=== PATIENT | male | born 1965 | race Caucasian/White ===

== ENCOUNTER 2016-05-25 19:07 | Emergency (ER) | payer MEDICARE, MEDICAID ==
--- NOTE | 2016-05-25 19:52 | Emergency Department Record ---
History of Present Illness - General Chief complaint: Extremity Problem Stated complaint: SMASHED RT HAND PINKE Time Seen by Provider: 05/25/16 19:49 Source: Patient Mode of Arrival: Ambulatory Limitations: No limitations - History of Present Illness Initial comments: 50 yo male presents to ED with a CC of injury to the right little finger. Patient reports that the finger was caught between two trees that he was cutting down resulting in a crush injury. Patient denies other injury, and reports that he is till able to move the finger well. Patient denies health problems other than HIV, is currently taking retro-viral therapy. MD Complaint: Extremity pain Onset/Timin -: Minutes(s) Location: Right History of Same: No Radiation: None Severity scale (1-10): >10 Quality: Crushing Consistency: Constant Improves with: Nothing Worsens with: Nothing Associated Symptoms: Denies other symptoms - Related Data Allergies Allergy/AdvReac Type Severity Reaction Status Date / Time acetaminophen [From Percocet] Allergy ITCHING Verified 05/25/16 19:16 oxycodone HCl [From Percocet] Allergy ITCHING Verified 05/25/16 19:16 Travel Screening - Travel/Exposure Within Last 30 Days Have you traveled within the last 30 days?: No - Travel/Exposure Within Last Year Have you traveled outside the [place] in the last year?: No - Additonal Travel Details Have you been exposed to anyone with a communicable illness?: No - Travel Symptoms Symptom Screening: None Review of Systems Constitutional: Denies: Chills, Fever, Malaise, Night sweats Eyes: Denies: Eye discharge, Eye pain ENT: Denies: Congestion, Ear pain, Epistaxis Respiratory: Denies: Cough, Dyspnea Cardiovascular: Denies: Chest pain, Dyspnea on exertion Endocrine: Denies: Fatigue, Heat or cold intolerance Gastrointestinal: Denies: Abdominal pain, Nausea, Vomiting Genitourinary: Denies: Incontinence, Retention Musculoskeletal: Reports: Arthralgia. Denies: Back pain, Gout, Joint swelling Skin: Denies: Bruising, Change in color Neurological: Denies: Abnormal gait, Confusion, Headache, Seizure Psychiatric: Denies: Anxiety Hematological/Lymphatic: Denies: Anemia, Blood Clots Past Medical History - SOCIAL HISTORY Smoking Status: Current every day smoker Alcohol Use: Rare Drug Use: None - RESPIRATORY Hx Respiratory Disorders: No - CARDIOVASCULAR Hx Cardio Disorders: Yes Comment:: high cholesterol - NEURO Hx Neuro Disorders: No - GI Hx GI Disorders: Yes Hx Reflux: Yes - Hx Genitourinary Disorders: Yes Hx Prostate Problems: Yes - ENDOCRINE Hx Endocrine Disorders: No - MUSCULOSKELETAL Hx Musculoskeletal Disorders: Yes - PSYCH Hx Psych Problems: No - HEMATOLOGY/ONCOLOGY Hx Hematology/Oncology Disorders: Yes Comment:: HIV positive Family Medical History Any Significant Family History?: No Physical Exam - General General Appearance: Alert, Oriented x3, Cooperative, Moderate distress Limitations: No limitations - Head Head exam: Atraumatic, Normocephalic, Normal inspection Head exam detail: negative: Abrasion, Contusion, Youngblood's sign, General tenderness, Hematoma, Laceration - Eye Eye exam: Normal appearance. negative: Conjunctival injection, Periorbital swelling, Periorbital tenderness, Scleral icterus - ENT Ear exam: negative: Auricular hematoma, Auricular trauma Nasal Exam: negative: Active bleeding, Discharge, Dried blood, Foreign body Mouth exam: negative: Drooling, Laceration, Muffled voice, Tongue elevation - Neck Neck exam: Normal inspection. negative: Meningismus, Tenderness - Respiratory Respiratory exam: Normal lung sounds bilaterally. negative: Rales, Respiratory distress, Rhonchi, Stridor - Cardiovascular Cardiovascular Exam: Regular rate, Normal rhythm, Normal heart sounds - GI/Abdominal GI/Abdominal exam: Soft - Rectal Rectal exam: Deferred - exam: Deferred - Extremities Extremities exam: Tenderness, Other (STS and abrasions to the right little digit , Limited ROM due to pain however extension and flexion are intact suggesting tendon function is intact.). negative: Calf tenderness, Pedal edema - Back Back exam: Reports: Normal inspection. Denies: CVA tenderness (R), CVA tenderness (L) - Neurological Neurological exam: Alert, Normal gait, Oriented X3 - Psychiatric Psychiatric exam: Normal affect, Normal mood - Skin Skin exam: Abrasion, Normal color Type of lesion: abrasion Course Vital Signs 05/25/16 19:17 Temperature 98.1 F Pulse Rate 96 H Respiratory 21 Rate Blood Pressure 141/95 Pulse Ox 98 - Reevaluation(s) Reevaluation #1: 05/25/16 20:20 X-ray right little finger: No fracture identified Patient was updated on radiology results, has been soaking the digit in soapy solution. Laceration/abrasions all cleaned at the bedside, and there is no significant laceration requiring suture repair or dermabond. I did discuss initiating Keflex for antibiotic prophylaxis given the mechanism of injury, patient declined stating "I am leary about taking more antibiotic if I don't absolutely need them". Patient was encouraged to return to the ED for any redness, swelling, drainage, or fever symptoms immediately for reassessment. Patient's tetanus is UTD. Disposition Disposition: Discharge Clinical Impression: Laceration of little finger Qualifiers: Encounter type: initial encounter Qualified Code(s): S61.218A - Laceration without foreign body of other finger without damage to nail, initial encounter Disposition: Home, Self-Care Condition: (2) Stable Instructions: Finger Laceration (ED) Additional Instructions: Return to ED if your symptoms worsen or if you have any concerns. Follow-up with your family doctor in 3-5 days. Return to ED for any swelling, redness, drainage from the wound, or fever symptoms immediately. Forms: Patient Portal Access Time of Disposition: 20:24
--- NOTE | 2016-05-29 15:12 | RADIOLOGY REPORT ---
EXAM: RIGHT LITTLE FINGER HISTORY: SMASH INJURY OF THE MID PORTION OF THE LITTLE FINGER. TECHNIQUE: Three views of the right little finger were obtained. Comparison: None. FINDINGS: There is soft tissue swelling and laceration at the level of the middle phalanx. There is no visible acute fracture or dislocation. There is no radiopaque foreign body. IMPRESSION: NO FRACTURE OR FOREIGN BODY. JOB NUMBER: [id number] MTDD
== END 2016-05-25 20:46 | disposition home or self-care (01) ==
LOC: ER 19:07
DX: S61.216A Laceration without foreign body of right little finger without damage to nail, initial encounter (principal); W20.8XXA Other cause of strike by thrown, projected or falling object, initial encounter
CPT/HCPCS: 73140; 99283

== ENCOUNTER 2018-07-03 20:38 | Emergency (ER) | payer MEDICARE, MEDICAID ==
--- NOTE | 2018-07-03 21:07 | Emergency Department Record ---
History of Present Illness - General Chief complaint: Pain Stated complaint: judy anna Time Seen by Provider: 07/03/18 20:44 Source: Patient Mode of Arrival: Ambulatory Limitations: No limitations - History of Present Illness Initial comments: The patient is here due to lower back and tailbone pain. He states a week ago he was climbing from the front seat to the back and landed on the edge of the seat hitting his coccyx. Since he has had significant pain in the coccygeal area which is worse with bending and moving. He also has had bowel incontinence and having trouble urinating. He is describing basically urine retention and having trouble voiding. He also is having pain with intercourse. Due to the persistent pain he decided to come to the ER. He denies any AP, fever, chills, or dysuria. MD Complaint: Other Onset/Timin -: Days(s) Location: Other History of Same: No Radiation: None Severity scale (1-10): 7 Quality: Sharp Consistency: Constant Improves with: Medication Worsens with: Walking, Weight bearing - Related Data Home Medications Medication Instructions Recorded Confirmed Last Taken Acyclovir [Zovirax] 800 mg PO DAILY 07/03/18 07/03/18 07/03/18 Aspirin 1 tab PO DAILY 07/03/18 07/03/18 07/03/18 Cyanocobalamin (Vitamin B-12) 2,500 mcg PO DAILY 07/03/18 07/03/18 07/03/18 [Vitamin B12] Darunavir/Cobicistat [Prezcobix 1 each PO DAILY 07/03/18 07/03/18 07/03/18 800 mg-150 mg Tablet] Dolutegravir Sodium [Tivicay] 50 mg PO DAILY 07/03/18 07/03/18 07/03/18 Emtricitabine/Tenofov Alafenam 1 tab PO DAILY 07/03/18 07/03/18 07/03/18 [Descovy 200-25 mg Tablet] Pantoprazole Sodium [Protonix] 40 mg PO DAILY 07/03/18 07/03/18 07/03/18 Pregabalin [Lyrica] 50 mg PO DAILY 07/03/18 07/03/18 07/03/18 Rosuvastatin Calcium 10 mg PO DAILY 07/03/18 07/03/18 07/03/18 Tadalafil 2 tab PO DAILY 07/03/18 07/03/18 07/03/18 Allergies Allergy/AdvReac Type Severity Reaction Status Date / Time oxycodone HCl [From Percocet] Allergy ITCHING Verified 05/25/16 19:16 Travel Screening - Travel/Exposure Within Last 30 Days Have you traveled within the last 30 days?: Yes Location Detail:: [place] - Travel/Exposure Within Last Year Have you traveled outside the [place] in the last year?: No - Additonal Travel Details Have you been exposed to anyone with a communicable illness?: No - Travel Symptoms Symptom Screening: None Review of Systems Constitutional: Denies: Chills, Fever Eyes: Denies: Eye discharge ENT: Denies: Congestion Respiratory: Denies: Cough, Dyspnea Past Medical History - SOCIAL HISTORY Smoking Status: Current every day smoker Alcohol Use: Rare Drug Use: None - RESPIRATORY Hx Respiratory Disorders: No - CARDIOVASCULAR Hx Cardio Disorders: Yes Comment:: high cholesterol - NEURO Hx Neuro Disorders: No - GI Hx GI Disorders: Yes Hx Reflux: Yes - Hx Genitourinary Disorders: Yes Hx Kidney Stones: Yes Hx Prostate Problems: Yes - ENDOCRINE Hx Endocrine Disorders: No - MUSCULOSKELETAL Hx Musculoskeletal Disorders: Yes - PSYCH Hx Psych Problems: No - HEMATOLOGY/ONCOLOGY Hx Hematology/Oncology Disorders: Yes Hx Cancer: Yes (skin cancer) Comment:: HIV positive Family Medical History Any Significant Family History?: Yes Hx Diabetes: Mother Hx Heart Disease: Mother Physical Exam - General General Appearance: Alert, Oriented x3, Cooperative, No acute distress - Head Head exam: Atraumatic, Normocephalic, Normal inspection - Neck Neck exam: Normal inspection, Full ROM. negative: Tenderness - Respiratory Respiratory exam: Normal lung sounds bilaterally. negative: Respiratory distress - Cardiovascular Cardiovascular Exam: Regular rate, Normal rhythm, Normal heart sounds - GI/Abdominal GI/Abdominal exam: Soft, Normal bowel sounds. negative: Tenderness - Extremities Extremities exam: Normal inspection, Full ROM, Normal capillary refill, Other ( Neg SLR bilaterally.). negative: Tenderness - Back Back exam: Reports: Normal inspection, Other (There is coccygeal tenderness which does reproduce the pain.). Denies: Vertebral tenderness - Neurological Neurological exam: Alert, Normal gait, Oriented X3. negative: Abnormal gait, Motor sensory deficit, Reflexes normal (The reflexes are trace and equal in the bilateral patellar and achilles areas.) Course Vital Signs 07/03/18 20:44 Temperature 98.8 F Pulse Rate [ 91 H Pulse Ox Probe] Respiratory 20 Rate Blood Pressure 132/90 [Left Arm] Pulse Ox 97 - Reevaluation(s) Reevaluation #1: The patient is doing OK at this time but still has the coccygeal pain. Due to the neurological complaints relating to his bowels and bladder along with the lack of lower leg reflexes I do feel the patient needs a lower back MRI. The patient would like to go to [facility] due to his PCP working out of there. I did discuss the case with Dr. Sriram Smith in the ER and he does accept the patient in an ER to ER transfer for further evaluation. 07/03/18 22:07 Medical Decision Making - Data Complexity MDM Data: Labs Ordered and/or Reviewed (US: Neg Post Void Residual after UA: Normal, <50 mls.), X-Ray Ordered and/or Reviewed - Radiology Data Radiology results: Report reviewed (Lumbar and Coccyx xray: Neg for acute changes, positive arthritis.) Disposition Disposition: Transfer Clinical Impression: Coccygeal pain, acute Disposition: Acute Care Hospital Transfer Transfer To: [facility]. Reason For Transfer: MRI Accepting Physician: Sriram Ramirez. Time Discussed w/Accepting Physician: 22:05 Condition: (2) Stable Additional Instructions: Please proceed to the [facility] ER for further evaluation and a possible MRI. Forms: Patient Portal Access Time of Disposition: 22:06 Quality - Quality Measures Quality Measures: N/A - Blood Pressure Screening View Details: Yes Does Patient Have Any of the Following: No Blood Pressure Classification: Pre-Hypertensive BP Reading Systolic Measurement: 125 Diastolic Measurement: 83 Screening for High Blood Pressure: < Pre-Hypertensive BP, F/U Documented > [ G8950] Pre-Hypertensive Follow-up Interventions: Referral to alternative/primary care provider.
[2018-07-03 21:09] LABS: URINE APPEARANCE CLEAR; URINE BILIRUBIN NEGATIVE (NEGATIVE); URINE BLOOD NEGATIVE (NEGATIVE); URINE COLOR YELLOW; URINE GLUCOSE (UA) NEGATIVE (NEGATIVE); URINE KETONE NEGATIVE (NEGATIVE); URINE LEUKOCYTE ESTERASE NEGATIVE (NEGATIVE); URINE NITRITE NEGATIVE (NEGATIVE); URINE PROTEIN NEGATIVE (NEGATIVE); URINE UROBILINOGEN 0.2 E.U./dL (0.20 - 1.00)
[2018-07-03] MEDS ORDERED: KETOROLAC 30 MG/ML VIAL IM ONE (21:50)
--- NOTE | 2018-07-06 06:49 | RADIOLOGY REPORT ---
EXAM: LUMBAR SPINE HISTORY: INJURY TO THE COCCYX AND LOW BACK ONE WEEK AGO. TECHNIQUE: Six views of the lumbar spine were obtained. Comparison: None. FINDINGS: There are the typical five lumbar vertebral segments. The lumbar alignment and curvature are unremarkable. There is no fracture, spondylolysis or spondylolisthesis. There is narrowing of the L4-L5 and L5-S1 disk spaces. The disk spaces otherwise are well maintained. There is no destructive or erosive change. IMPRESSION: 1. ARTHRITIC CHANGES IN THE LOWER LUMBAR SPINE AT L4-L5 AND L5-S1. 2. NO FRACTURE OR ACUTE OSSEOUS ABNORMALITY. JOB NUMBER: [id number] [facility]
== END 2018-07-03 22:23 | disposition short-term general hospital (02) ==
LOC: ER 20:38
DX: M53.3 Sacrococcygeal disorders, not elsewhere classified (principal); M54.5 Low back pain; R33.9 Retention of urine, unspecified; F17.210 Nicotine dependence, cigarettes, uncomplicated
CPT/HCPCS: 99283; 96372; 99284; 81003; 72100; J1885

== ENCOUNTER 2018-07-08 14:10 | Emergency (ER) | payer MEDICARE, MEDICAID ==
[2018-07-08] MEDS ORDERED: Diph,Pert(Acell),Tet Vac 0.5 ML SYR IM ONE (14:45)
--- NOTE | 2018-07-08 15:29 | Emergency Department Record ---
History of Present Illness - General Chief Complaint: Laceration(s) Stated Complaint: LACERATION ON RT THUMB Time Seen by Provider: 07/08/18 14:40 Source: Patient Mode of Arrival: Ambulatory Limitations: No limitations - History of Present Illness Initial Commments: pt cut thumb 2 days ago. hes had a dressing on it. he cut it while working on a toilet. he went to [facility] but didnt want to wait, heneeds a tetnus Onset/Timin -: Days(s) Extremity Location: Left: Hand Place: Home Context: Accidental, Sharp object use - Harriet Coma Scale Eye Response: (4) Open spontaneously Motor Response: (6) Obeys commands Verbal Response: (5) Oriented [place] Total: 15 - Related Data Allergies Allergy/AdvReac Type Severity Reaction Status Date / Time oxycodone HCl [From Percocet] Allergy ITCHING Verified 07/08/18 14:38 Travel Screening - Travel/Exposure Within Last 30 Days Have you traveled within the last 30 days?: No - Travel/Exposure Within Last Year Have you traveled outside the [place] in the last year?: No - Additonal Travel Details Have you been exposed to anyone with a communicable illness?: No - Travel Symptoms Symptom Screening: None Review of Systems Reviewed: No additional complaints except as noted below Constitutional: Reports: As per HPI. Denies: Chills, Fever, Malaise, Night sweats, Weakness, Weight change Eyes: Reports: As per HPI. Denies: Eye discharge, Eye pain, Photophobia, Vision change ENT: Reports: As per HPI. Denies: Congestion, Dental pain, Ear pain, Epistaxis , Hearing loss, Throat pain Respiratory: Reports: As per HPI. Denies: Cough, Dyspnea, Hemoptysis, Stridor, Wheezes Cardiovascular: Reports: As per HPI. Denies: Arrhythmia, Chest pain, Dyspnea on exertion, Edema, Murmurs, Orthopnea, Palpitations, Paroxysmal nocturnal dyspnea, Rheumatic Fever, Syncope Endocrine: Reports: As per HPI. Denies: Fatigue, Heat or cold intolerance, Polydipsia, Polyuria Gastrointestinal: Reports: As per HPI. Denies: Abdominal pain, Constipation, Diarrhea, Hematemesis, Hematochezia, Melena, Nausea, Vomiting Genitourinary: Reports: As per HPI. Denies: Dysuria, Frequency, Hematuria, Incontinence, Retention, Testicular pain, Testicular mass, Urgency Musculoskeletal: Reports: As per HPI. Denies: Arthralgia, Back pain, Gout, Joint swelling, Myalgia, Neck pain Skin: Reports: As per HPI. Denies: Bruising, Change in color, Change in hair/ nails, Lesions, Pruritus, Rash Neurological: Reports: As per HPI. Denies: Abnormal gait, Confusion, Headache, Numbness, Paresthesias, Seizure, Tingling, Tremors, Vertigo, Weakness Psychiatric: Reports: As per HPI. Denies: Anxiety, Auditory hallucinations, Depression, Homicidal thoughts, Suicidal thoughts, Visual hallucinations Hematological/Lymphatic: Reports: As per HPI. Denies: Anemia, Blood Clots, Easy bleeding, Easy bruising, Swollen glands Past Medical History - SOCIAL HISTORY Smoking Status: Current every day smoker Alcohol Use: Rare Drug Use: None - RESPIRATORY Hx Respiratory Disorders: No - CARDIOVASCULAR Hx Cardio Disorders: Yes Comment:: high cholesterol - NEURO Hx Neuro Disorders: No - GI Hx GI Disorders: Yes Hx Reflux: Yes - Hx Genitourinary Disorders: Yes Hx Kidney Stones: Yes Hx Prostate Problems: Yes - ENDOCRINE Hx Endocrine Disorders: No - MUSCULOSKELETAL Hx Musculoskeletal Disorders: Yes - PSYCH Hx Psych Problems: No - HEMATOLOGY/ONCOLOGY Hx Hematology/Oncology Disorders: Yes Hx Cancer: Yes (skin cancer) Hx Chemotherapy: No Hx Radiation Therapy: No Comment:: HIV positive Family Medical History Any Significant Family History?: No Hx Diabetes: Mother Hx Heart Disease: Mother Physical Exam - General General Appearance: Alert, Oriented x3, Cooperative, No acute distress - Head Head exam: Normal inspection - Eye Eye exam: Normal appearance, PERRL, EOMI Pupils: Normal accommodation - ENT ENT exam: Normal exam, Mucous membranes moist, Normal external ear exam, Normal orophraynx Ear exam: Normal external inspection. negative: External canal tenderness Nasal Exam: Normal inspection. negative: Discharge, Sinus tenderness Mouth exam: Normal external inspection, Tongue normal Teeth exam: Normal inspection. negative: Dental caries Throat exam: Normal inspection. negative: Tonsillar erythema, Tonsillar exudate - Neck Neck exam: Normal inspection, Full ROM. negative: Tenderness - Respiratory Respiratory exam: Normal lung sounds bilaterally. negative: Respiratory distress - Cardiovascular Cardiovascular Exam: Regular rate, Normal rhythm, Normal heart sounds - GI/Abdominal GI/Abdominal exam: Soft, Normal bowel sounds. negative: Tenderness - Rectal Rectal exam: Deferred - exam: Deferred - Extremities Extremities exam: Normal inspection, Full ROM, Normal capillary refill. negative: Tenderness Image of Finger Tip: 1 - avulsion of tissue - Back Back exam: Reports: Normal inspection, Full ROM. Denies: Muscle spasm, Rash noted, Tenderness - Neurological Neurological exam: Alert, CN II-XII intact, Normal gait, Oriented X3 - Psychiatric Psychiatric exam: Normal affect, Normal mood - Skin Skin exam: Dry, Intact, Normal color, Warm Course Vital Signs 07/08/18 14:22 Temperature 98.6 F Pulse Rate 77 Respiratory 16 Rate Blood Pressure 131/78 Pulse Ox 97 Disposition Disposition: Discharge Clinical Impression: Skin avulsion Disposition: Home, Self-Care Condition: (1) Good Instructions: Laceration (ED) Additional Instructions: follow up with family doctor. return sooner if worse. Forms: Patient Portal Access Quality - Quality Measures Quality Measures: N/A - Blood Pressure Screening Does Patient Have Any of the Following: No Blood Pressure Classification: Pre-Hypertensive BP Reading Systolic Measurement: 131 Diastolic Measurement: 78 Screening for High Blood Pressure: < Pre-Hypertensive BP, F/U Documented > [ G8950] Pre-Hypertensive Follow-up Interventions: Follow-up with rescreen every year.
== END 2018-07-08 15:42 | disposition home or self-care (01) ==
LOC: ER 14:10
DX: S61.011A Laceration without foreign body of right thumb without damage to nail, initial encounter (principal); W27.8XXA Contact with other nonpowered hand tool, initial encounter; Y93.H3 Activity, building and construction; Y92.002 Bathroom of unspecified non-institutional (private) residence as the place of occurrence of the external cause; F17.210 Nicotine dependence, cigarettes, uncomplicated
CPT/HCPCS: 90715; 96372; 99282